=== PATIENT | male | born 1950 | race Caucasian/White ===

== ENCOUNTER 2019-04-30 11:21 | Inpatient (IN) ==
[2019-04-30] MEDS ORDERED: Famotidine 20 MG/2 ML VIAL IVP ONE (12:21)
[2019-04-30] MEDS ORDERED: Pregabalin 75 MG CAPSULE PO ONE (12:24)
[2019-04-30] MEDS ORDERED: Celecoxib 100 MG CAPSULE PO ONE (12:25)
[2019-04-30] MEDS ORDERED: *HR* Promethazine 25 MG/ML VIAL IVP PRN (12:26)
[2019-04-30] MEDS ORDERED: *HR* HYDROmorphone 2 MG TABLET PO PRN (12:26)
[2019-04-30] MEDS ORDERED: *HR* Labetalol 20 MG/4 ML SYRINGE IVP PRN (12:26)
[2019-04-30] MEDS ORDERED: *HR* OxyCODONE Immed Rel 5 MG TABLET PO PRN (12:26)
[2019-04-30] MEDS ORDERED: Vancomycin 1,000 MG, Sodium Chloride IRRigation 1,000 ML IR ONE (12:30)
[2019-04-30] MEDS ORDERED: CeFAZolin Syr 2,000MG/20 ML 2,000 MG/20 ML SYRINGE IVPB ONE (12:48)
[2019-04-30] MEDS ORDERED: Albuterol 2.5 MG/3 ML NEBULIZER IH PRN (12:48)
[2019-04-30] MEDS ORDERED: *HR* FentaNYL (PF) 100 MCG/2 ML VIAL ONE (12:50)
[2019-04-30] MEDS ORDERED: *HR* Propofol 200 MG/20 ML VIAL IVP ONE (12:50)
[2019-04-30] MEDS ORDERED: Lidocaine -MPF 2% 2 ML VIAL ONE (12:50)
[2019-04-30] MEDS ORDERED: *HR* Midazolam HCl 2 MG/2 ML VIAL ONE (12:50)
[2019-04-30] MEDS ORDERED: *HR* Succinylcholine 200 MG/10 ML VIAL IVP ONE (12:50)
[2019-04-30] MEDS ORDERED: Heparin 1,000 UNITS/500 mL 500 ML ONE (12:52)
[2019-04-30] MEDS ORDERED: *HR* Remifentanil 2 MG VIAL IVP ONE (12:52)
[2019-04-30] MEDS ORDERED: Bupivacaine-MPF 0.25% 10 ML VIAL ONE (12:52)
[2019-04-30] MEDS ORDERED: Protamine Sulfate 50 MG/5 ML VIAL IVP ONE (12:52)
[2019-04-30] MEDS ORDERED: EPHEDrine 50 MG/ML VIAL ONE (12:54)
[2019-04-30] MEDS ORDERED: *HR* PHENYLEPHRINE 1,000 MCG/10 ML SYRINGE IVP ONE (12:55)
[2019-04-30] MEDS ORDERED: NiCARdipine 2.5 MG/10 ML Syringe IVPB ONE (13:00)
[2019-04-30] MEDS ORDERED: Ringers Solution, Lactated 1,000 ML IVC SCH (13:00)
[2019-04-30] MEDS ORDERED: *HR* Phenylephrine 10 MG/ML VIAL ONE (13:04)
[2019-04-30] MEDS ORDERED: Heparin 1,000 UNITS/500 mL 0 ML ONE (13:09)
[2019-04-30] MEDS ORDERED: Lidocaine HCL 4 ML Topical Solution (Laryng-O-Jet Kit Sterile Pak) TP ONE (13:27)
[2019-04-30] MEDS ORDERED: *HR* Heparin 5,000 UNIT/ML VIAL ONE (13:47)
[2019-04-30 14:18] LABS: BUN/Creatinine Ratio 6 (6-26); Blood Urea Nitrogen 4 mg/dL (8-23); Calcium 8.6 mg/dL (8.6-10.3); Carbon Dioxide 26 mEq/L (23-29); Ethanol 85 mg/dL (Less than 10); Glucose 100 mg/dL (70-105); eGFR For African Americans > 60 (> 60); eGFR For Non-African Americans > 60 (> 60)
[2019-04-30 14:20] LABS: Chloride 107 mEq/L (98-107)
[2019-04-30 14:34] LABS: Osmolality,Calculated 287 (280-300); Potassium 3.6 mEq/L (3.5-5.1); Sodium 140 mEq/L (136-145)
[2019-04-30] MEDS ORDERED: *HR* LORazepam 2 MG/ML VIAL IVP PRN ×3 (16:29)
[2019-04-30 16:57] LABS: Basophils # 0.1 K/mcL (0.0-0.2); Basophils % 0.5 %; Eosinophils # 0.1 K/mcL (0.0-0.6); Eosinophils % 0.6 %; Hematocrit 43.6 % (37.5-50.1); Hemoglobin 14.8 g/dL (12.9-16.9); Immature Granulocytes % 0.6 % (0-4); Lymphocytes # 1.4 K/mcL (0.6-4.6); Lymphocytes % 11.5 %; Mean Corpuscular HGB Conc 33.9 g/dL (31.6-35.5); Mean Corpuscular Hemoglobin 35.3 pg (28.0-33.3); Mean Corpuscular Volume 104.1 fL (83.0-100.0); Mean Platelet Volume 8.7 fL (9.4-12.4); Monocytes # 1.1 K/mcL (0.0-1.3); Neutrophils # 9.3 K/mcL (1.6-8.9); Platelet Count 300 K/mcL (140-400); Red Blood Count 4.19 M/mcL (4.19-5.50); Red Cell Distribution Width 13.4 % (11.5-14.5); Segmented Neutrophils % 77.8 %; White Blood Count 11.9 K/mcL (4.3-11.1)
[2019-04-30 17:02] LABS: Prothrombin Time 11.5 Seconds (9.4-12.1)
[2019-04-30 17:15] LABS: Albumin 3.2 g/dL (3.5-5.7); Albumin/Globulin Ratio 0.9 (1.1-2.2); Bilirubin,Direct 0.2 mg/dL (0.0-0.2); Bilirubin,Indirect 0.3 mg/dL (0.0-1.0); Bilirubin,Total 0.5 mg/dL (0.3-1.0); Globulin 3.6 g/dL (2.4-3.5); Total Protein 6.8 g/dL (6.4-8.9)
[2019-04-30] MEDS: Ringers Solution, Lactated 1,000 ML IVC SCH (17:15)
[2019-04-30] MEDS: *HR* Heparin 5,000 UNIT/ML VIAL SQ SCH (17:15)
[2019-04-30] MEDS: Thiamine (B-1) 100 MG, Folic Acid 1 MG, MVI, adult with vitamin K 10 ML in 0.9 % Sodi... IVPB SCH (18:20)
[2019-05-01] MEDS: Ringers Solution, Lactated 1,000 ML IVC SCH ×2 (00:44→08:46)
[2019-05-01] MEDS: *HR* Heparin 5,000 UNIT/ML VIAL SQ SCH (05:06)
[2019-05-01] MEDS: Thiamine (B-1) 100 MG TABLET PO SCH (08:46)
[2019-05-01] MEDS: Aspirin 81 MG TAB.CHEW PO SCH (08:46)
[2019-05-01] MEDS: Folic Acid 1 MG TABLET PO SCH (08:46)
[2019-05-01] MEDS ORDERED: *HR* Heparin 5,000 UNIT/ML VIAL IVP PRN ×2 (11:05)
[2019-05-01] MEDS ORDERED: *HR* Heparin 5,000 UNIT/ML VIAL IVP ONE (11:05)
[2019-05-01] MEDS: Heparin 25,000 UNIT/250 ML D5W 25,000 UNIT/250 ML IV.SOLN IVC SCH (11:35)
[2019-05-01] MEDS ORDERED: *HR* Heparin 5,000 UNIT/ML VIAL SQ SCH (12:00)
[2019-05-01 12:30] LABS: Hematocrit 37.3 % (37.5-50.1); Hemoglobin 12.4 g/dL (12.9-16.9); Mean Corpuscular HGB Conc 33.2 g/dL (31.6-35.5); Mean Corpuscular Hemoglobin 35.8 pg (28.0-33.3); Mean Corpuscular Volume 107.8 fL (83.0-100.0); Mean Platelet Volume 9.2 fL (9.4-12.4); Platelet Count 237 K/mcL (140-400); Red Blood Count 3.46 M/mcL (4.19-5.50); Red Cell Distribution Width 13.6 % (11.5-14.5); White Blood Count 7.6 K/mcL (4.3-11.1)
[2019-05-01 12:32] LABS: Heparin anti-factor XA UFH < 0.04 IU/mL (0.30-0.70)
[2019-05-01 12:33] LABS: INR 1.1; Prothrombin Time 12.3 Seconds (9.4-12.1)
[2019-05-01] MEDS: Thiamine (B-1) 100 MG, Folic Acid 1 MG, MVI, adult with vitamin K 10 ML in 0.9 % Sodi... IVPB SCH (17:00)
[2019-05-02] MEDS: Aspirin 81 MG TAB.CHEW PO SCH (08:19)
[2019-05-02] MEDS: Folic Acid 1 MG TABLET PO SCH (08:19)
[2019-05-02] MEDS: Thiamine (B-1) 100 MG TABLET PO SCH (08:23)
[2019-05-02] MEDS: Heparin 25,000 UNIT/250 ML D5W 25,000 UNIT/250 ML IV.SOLN IVC SCH (13:32)
[2019-05-02] MEDS ORDERED: Lidocaine -MPF 2% 2 ML VIAL ONE (17:11)
[2019-05-02] MEDS ORDERED: *HR* Propofol 200 MG/20 ML VIAL IVP ONE (17:12)
[2019-05-02] MEDS ORDERED: *HR* Succinylcholine 200 MG/10 ML VIAL IVP ONE (17:12)
[2019-05-02] MEDS ORDERED: *HR* Midazolam HCl 2 MG/2 ML VIAL ONE (17:15)
[2019-05-02] MEDS ORDERED: *HR* FentaNYL (PF) 100 MCG/2 ML VIAL ONE (17:15)
[2019-05-02] MEDS ORDERED: *HR* Remifentanil 1 MG VIAL IVP ONE ×2 (17:15→17:16)
[2019-05-02] MEDS ORDERED: Heparin 1,000 UNITS/500 mL 500 ML ONE (17:16)
[2019-05-02] MEDS ORDERED: Bupivacaine-MPF 0.25% 10 ML VIAL ONE (17:16)
[2019-05-02] MEDS ORDERED: Vancomycin 1,000 MG, Sodium Chloride IRRigation 1,000 ML IR ONE (17:30)
[2019-05-02] MEDS ORDERED: Albuterol 2.5 MG/3 ML NEBULIZER ONE (17:37)
[2019-05-02] MEDS ORDERED: Vancomycin 1,000 MG VIAL ONE (18:33)
[2019-05-02] MEDS ORDERED: *HR* Heparin 5,000 UNIT/ML VIAL ONE ×2 (18:40→19:25)
[2019-05-02] MEDS ORDERED: EPHEDrine 50 MG/ML VIAL ONE (18:45)
[2019-05-02] MEDS ORDERED: Ondansetron 4 MG/2 ML VIAL ONE (20:14)
[2019-05-02] MEDS ORDERED: *HR* Promethazine 25 MG/ML VIAL IVP PRN (20:30)
[2019-05-02] MEDS ORDERED: *HR* Labetalol 20 MG/4 ML SYRINGE IVP PRN ×2 (20:30→21:37)
[2019-05-02] MEDS ORDERED: Ondansetron 4 MG/2 ML VIAL IVP ONE (20:30)
[2019-05-02] MEDS ORDERED: Esmolol 100 MG/10 ML VIAL IVP ONE (20:36)
[2019-05-02] MEDS: Morphine Sulfate 2 MG/ML SYRINGE IVP PRN ×2 (21:03→21:16)
[2019-05-02] MEDS ORDERED: Acetaminophen 325 MG TABLET PO PRN (21:37)
[2019-05-02] MEDS ORDERED: Naloxone 0.4 MG/ML INJ IVP PRN (21:37)
[2019-05-02] MEDS ORDERED: *HR* HYDROcodone/Acet 5/325 mg TABLET PO PRN (21:37)
[2019-05-02] MEDS ORDERED: *HR* LORazepam 2 MG/ML VIAL IVP PRN ×3 (21:37)
[2019-05-02] MEDS ORDERED: 0.9 % Sodium Chloride 1,000 ML IVC SCH (21:37)
[2019-05-02] MEDS ORDERED: *HR* OxyCODONE Immed Rel 5 MG TABLET PO PRN (21:37)
[2019-05-02] MEDS ORDERED: Ondansetron 4 MG/2 ML VIAL IVP PRN (21:37)
[2019-05-02] MEDS ORDERED: 0.9 % Sodium Chloride 500 ML ONE (22:06)
[2019-05-02] MEDS ORDERED: 0.9 % Sodium Chloride 500 ML IVC SCH (22:15)
[2019-05-03] MEDS: *HR* Metoprolol 5 MG/5 ML VIAL IVP SCH ×2 (00:22→08:20)
[2019-05-03] MEDS: ceFAZolin 2,000 MG in 0.9 % Sodium Chloride 100 ML IVPB SCH ×2 (00:22→08:19)
[2019-05-03] MEDS ORDERED: *HR* Heparin 5,000 UNIT/ML VIAL SQ SCH (06:00)
[2019-05-03] MEDS ORDERED: Folic Acid 1 MG TABLET PO SCH (09:00)
[2019-05-03] MEDS ORDERED: Thiamine (B-1) 100 MG TABLET PO SCH (09:00)
[2019-05-03] MEDS ORDERED: Aspirin 81 MG TAB.CHEW PO SCH (09:00)
[2019-05-03 15:18] VITALS: BP 105/63
== END 2019-05-03 10:45 | disposition home or self-care (01) | DRG 38 ==
LOC: SAMDAY 11:21 → 2NNU 15:39 → SUATTDRO 15:39 → INTOOBSV 15:39
PROVIDERS: ADMIT Internal Medicine; ATTEND Internal Medicine

== ENCOUNTER 2019-08-03 20:42 | Observation (INO) ==
[2019-08-03] MEDS ORDERED: Pantoprazole 80 MG in 0.9 % Sodium Chloride 50 ML IVPB ONE (20:46)
[2019-08-03] MEDS ORDERED: 0.9 % Sodium Chloride 1,000 ML ONE (20:58)
[2019-08-03] MEDS ORDERED: 0.9 % Sodium Chloride 1,000 ML IVC ONE ×2 (20:58→21:51)
[2019-08-03 21:05] LABS: Basophils % 0.3 %; Eosinophils # 0.2 K/mcL (0.0-0.6); Eosinophils % 1.3 %; Immature Granulocytes % 0.9 % (0-4); Lymphocytes # 1.6 K/mcL (0.6-4.6); Lymphocytes % 12.1 %; Mean Corpuscular HGB Conc 31.8 g/dL (31.6-35.5); Mean Corpuscular Hemoglobin 32.3 pg (28.0-33.3); Mean Corpuscular Volume 101.4 fL (83.0-100.0); Mean Platelet Volume 9.8 fL (9.4-12.4); Monocytes # 1.8 K/mcL (0.0-1.3); Monocytes % 14.3 %; Neutrophils # 9.1 K/mcL (1.6-8.9); Platelet Count 367 K/mcL (140-400); Red Blood Count 2.17 M/mcL (4.19-5.50); Red Cell Distribution Width 17.3 % (11.5-14.5); Segmented Neutrophils % 71.1 %; White Blood Count 12.8 K/mcL (4.3-11.1)
[2019-08-03 21:10] LABS: INR 1.3; Prothrombin Time 14.3 Seconds (9.4-12.1)
[2019-08-03 21:12] LABS: Activated Partial Thrombo Time 26.3 Seconds (26.0-36.0)
[2019-08-03] MEDS ORDERED: cefTRIAXone 1,000 MG in Water for inj. (sterile) 10 ML IVP ONE (21:19)
[2019-08-03 21:28] LABS: Alanine Aminotransferase 16 Units/L (7-52); Albumin 2.4 g/dL (3.5-5.7); Alkaline Phosphatase 65 Units/L (34-104); Aspartate Amino Transferase 20 Units/L (13-39); BUN/Creatinine Ratio 14 (6-26); Bilirubin,Total 0.3 mg/dL (0.3-1.0); Blood Urea Nitrogen 12 mg/dL (8-23); Calcium 7.5 mg/dL (8.6-10.3); Carbon Dioxide 21 mEq/L (23-29); Chloride 105 mEq/L (98-107); Globulin 2.4 g/dL (2.4-3.5); Glucose 147 mg/dL (70-105); Lipase 8 Units/L (11-82); Magnesium 1.8 mg/dL (1.6-2.6); Osmolality,Calculated 286 (280-300); Potassium 3.9 mEq/L (3.5-5.1); Sodium 137 mEq/L (136-145); Total Protein 4.8 g/dL (6.4-8.9); Troponin I < 0.03 ng/mL (< 0.04); eGFR For African Americans > 60 (> 60); eGFR For Non-African Americans > 60 (> 60)
[2019-08-03 22:08] LABS: Ethanol < 10 mg/dL (Less than 10)
[2019-08-03] MEDS ORDERED: *HR* Promethazine 25 MG/ML VIAL IVP PRN (22:35)
[2019-08-03] MEDS ORDERED: Naloxone 0.4 MG/ML INJ IVP PRN (22:35)
[2019-08-03] MEDS ORDERED: *HR* LORazepam 2 MG/ML VIAL IVP PRN ×3 (22:49)
[2019-08-04] MEDS ORDERED: 0.9 % Sodium Chloride 1,000 ML IVC ONE (00:21)
[2019-08-04] MEDS ORDERED: 0.9 % Sodium Chloride 1,000 ML ONE (00:23)
[2019-08-04] MEDS ORDERED: Octreotide 400 MCG in 0.9 % Sodium Chloride 100 ML IVC SCH (00:30)
[2019-08-04 03:12] LABS: Basophils % 0.3 %; Eosinophils # 0.1 K/mcL (0.0-0.6); Eosinophils % 0.4 %; Hematocrit 21.3 % (37.5-50.1); Immature Granulocytes % 0.5 % (0-4); Lymphocytes # 1.1 K/mcL (0.6-4.6); Lymphocytes % 10.1 %; Mean Corpuscular HGB Conc 32.9 g/dL (31.6-35.5); Mean Corpuscular Hemoglobin 32.4 pg (28.0-33.3); Mean Corpuscular Volume 98.6 fL (83.0-100.0); Mean Platelet Volume 9.8 fL (9.4-12.4); Monocytes # 1.4 K/mcL (0.0-1.3); Monocytes % 12.4 %; Neutrophils # 8.6 K/mcL (1.6-8.9); Platelet Count 249 K/mcL (140-400); Red Blood Count 2.16 M/mcL (4.19-5.50); Segmented Neutrophils % 76.3 %; White Blood Count 11.2 K/mcL (4.3-11.1)
[2019-08-04 03:16] LABS: INR 1.3
[2019-08-04 03:31] LABS: BUN/Creatinine Ratio 21 (6-26); Blood Urea Nitrogen 12 mg/dL (8-23); Calcium 6.6 mg/dL (8.6-10.3); Carbon Dioxide 23 mEq/L (23-29); Chloride 111 mEq/L (98-107); Glucose 138 mg/dL (70-105); Magnesium 1.7 mg/dL (1.6-2.6); Osmolality,Calculated 286 (280-300); Potassium 4.1 mEq/L (3.5-5.1); Sodium 137 mEq/L (136-145); eGFR For African Americans > 60 (> 60); eGFR For Non-African Americans > 60 (> 60)
[2019-08-04] MEDS ORDERED: 0.9 % Sodium Chloride 250 ML ONE (03:36)
[2019-08-04] MEDS: Pantoprazole 40 MG VIAL IVP SCH ×2 (05:34→17:45)
[2019-08-04 08:49] LABS: Basophils # 0.1 K/mcL (0.0-0.2); Basophils % 0.5 %; Eosinophils # 0.1 K/mcL (0.0-0.6); Eosinophils % 1.1 %; Hemoglobin 7.9 g/dL (12.9-16.9); Immature Granulocytes % 0.6 % (0-4); Lymphocytes # 1.2 K/mcL (0.6-4.6); Mean Corpuscular HGB Conc 31.6 g/dL (31.6-35.5); Mean Corpuscular Hemoglobin 30.9 pg (28.0-33.3); Mean Corpuscular Volume 97.7 fL (83.0-100.0); Mean Platelet Volume 9.8 fL (9.4-12.4); Monocytes # 1.4 K/mcL (0.0-1.3); Monocytes % 14.3 %; Neutrophils # 6.9 K/mcL (1.6-8.9); Platelet Count 239 K/mcL (140-400); Red Blood Count 2.56 M/mcL (4.19-5.50); Red Cell Distribution Width 17.1 % (11.5-14.5); Segmented Neutrophils % 71.5 %; White Blood Count 9.7 K/mcL (4.3-11.1)
[2019-08-04 09:59] LABS: Amphetamine Screen,Urine Negative ng/mL (Cutoff=1000); Barbiturate Screen,Urine Negative ng/mL (Cutoff=200); Benzodiazepines Screen,Urine Negative ng/mL (Cutoff=200); Cannabinoid Screen,Urine Negative ng/mL (Cutoff = 50); Cocaine Screen,Urine Positive ng/mL (Cutoff= 300); Opiate Screen,Urine Negative ng/mL (Cutoff=300); Phencyclidine Screen,Urine Negative ng/mL (Cutoff=25)
[2019-08-04 15:20] LABS: Hematocrit 23.7 % (37.5-50.1); Hemoglobin 7.9 g/dL (12.9-16.9)
[2019-08-04] MEDS: Thiamine (B-1) 100 MG, Folic Acid 1 MG, MVI, adult with vitamin K 10 ML in 0.9 % Sodi... IVPB SCH (17:45)
[2019-08-05 03:17] LABS: BUN/Creatinine Ratio 14 (6-26); Blood Urea Nitrogen 11 mg/dL (8-23); Carbon Dioxide 23 mEq/L (23-29); Chloride 111 mEq/L (98-107); Glucose 135 mg/dL (70-105); Osmolality,Calculated 285 (280-300); Sodium 137 mEq/L (136-145); eGFR For African Americans > 60 (> 60); eGFR For Non-African Americans > 60 (> 60)
[2019-08-05 03:37] LABS: Hematocrit 23.8 % (37.5-50.1); Hemoglobin 7.6 g/dL (12.9-16.9); Mean Corpuscular HGB Conc 31.9 g/dL (31.6-35.5); Mean Corpuscular Hemoglobin 31.1 pg (28.0-33.3); Mean Corpuscular Volume 97.5 fL (83.0-100.0); Mean Platelet Volume 10.3 fL (9.4-12.4); Platelet Count 255 K/mcL (140-400); Red Blood Count 2.44 M/mcL (4.19-5.50); Red Cell Distribution Width 17.2 % (11.5-14.5); White Blood Count 8.4 K/mcL (4.3-11.1)
[2019-08-05] MEDS: Pantoprazole 40 MG VIAL IVP SCH ×2 (06:21→18:39)
[2019-08-05 09:17] LABS: Albumin 2.1 g/dL (3.5-5.7); Albumin/Globulin Ratio 0.9 (1.1-2.2); Bilirubin,Direct 0.1 mg/dL (0.0-0.2); Bilirubin,Indirect 0.3 mg/dL (0.0-1.0); Bilirubin,Total 0.4 mg/dL (0.3-1.0); Globulin 2.3 g/dL (2.4-3.5); Total Protein 4.4 g/dL (6.4-8.9)
[2019-08-05] MEDS ORDERED: Gadolinium Contrast Agent (WT Based) IV PRN (10:32)
[2019-08-05 14:36] LABS: Hematocrit 26.3 % (37.5-50.1); Hemoglobin 8.3 g/dL (12.9-16.9)
[2019-08-05 14:52] LABS: % Iron Saturation 25 % (20-55); Iron 46 mcg/dL (65-175); Transferrin 129 mg/dL (203-362)
[2019-08-05] MEDS: Thiamine (B-1) 100 MG, Folic Acid 1 MG, MVI, adult with vitamin K 10 ML in 0.9 % Sodi... IVPB SCH (18:39)
[2019-08-06 00:56] LABS: Basophils % 0.4 %; Eosinophils # 0.1 K/mcL (0.0-0.6); Eosinophils % 1.2 %; Hematocrit 23.2 % (37.5-50.1); Hemoglobin 7.6 g/dL (12.9-16.9); Immature Granulocytes % 0.4 % (0-4); Lymphocytes # 1.3 K/mcL (0.6-4.6); Lymphocytes % 12.5 %; Mean Corpuscular HGB Conc 32.8 g/dL (31.6-35.5); Mean Corpuscular Hemoglobin 32.2 pg (28.0-33.3); Mean Corpuscular Volume 98.3 fL (83.0-100.0); Mean Platelet Volume 9.6 fL (9.4-12.4); Monocytes # 1.5 K/mcL (0.0-1.3); Monocytes % 14.6 %; Neutrophils # 7.4 K/mcL (1.6-8.9); Platelet Count 250 K/mcL (140-400); Red Blood Count 2.36 M/mcL (4.19-5.50); Red Cell Distribution Width 16.8 % (11.5-14.5); Segmented Neutrophils % 70.9 %; White Blood Count 10.4 K/mcL (4.3-11.1)
[2019-08-06 01:14] LABS: Alanine Aminotransferase 12 Units/L (7-52); Albumin 1.9 g/dL (3.5-5.7); Albumin/Globulin Ratio 0.9 (1.1-2.2); Alkaline Phosphatase 56 Units/L (34-104); Aspartate Amino Transferase 14 Units/L (13-39); BUN/Creatinine Ratio 8 (6-26); Bilirubin,Total 0.2 mg/dL (0.3-1.0); Blood Urea Nitrogen 10 mg/dL (8-23); Carbon Dioxide 23 mEq/L (23-29); Chloride 110 mEq/L (98-107); Globulin 2.1 g/dL (2.4-3.5); Glucose 154 mg/dL (70-105); Osmolality,Calculated 282 (280-300); Potassium 3.7 mEq/L (3.5-5.1); Sodium 135 mEq/L (136-145); eGFR For African Americans > 60 (> 60); eGFR For Non-African Americans 57 (> 60)
[2019-08-06] MEDS: Pantoprazole 40 MG VIAL IVP SCH (05:39)
[2019-08-06] MEDS ORDERED: *HR* FentaNYL (PF) 100 MCG/2 ML VIAL ONE (10:43)
[2019-08-06] MEDS ORDERED: Lidocaine -MPF 4% 5 ML AMPUL ONE (10:43)
[2019-08-06] MEDS ORDERED: *HR* Propofol 200 MG/20 ML VIAL IVP ONE (10:43)
[2019-08-06] MEDS: Thiamine (B-1) 100 MG, Folic Acid 1 MG, MVI, adult with vitamin K 10 ML in 0.9 % Sodi... IVPB SCH (17:12)
[2019-08-07 03:16] LABS: Hematocrit 23.8 % (37.5-50.1); Hemoglobin 7.8 g/dL (12.9-16.9)
[2019-08-07 03:34] LABS: BUN/Creatinine Ratio 10 (6-26); Blood Urea Nitrogen 9 mg/dL (8-23); Calcium 7.3 mg/dL (8.6-10.3); Carbon Dioxide 24 mEq/L (23-29); Chloride 109 mEq/L (98-107); Glucose 98 mg/dL (70-105); Osmolality,Calculated 281 (280-300); Potassium 3.7 mEq/L (3.5-5.1); Sodium 136 mEq/L (136-145); eGFR For African Americans > 60 (> 60); eGFR For Non-African Americans > 60 (> 60)
[2019-08-07] MEDS ORDERED: Folic Acid 1 MG TABLET PO SCH (09:00)
[2019-08-07] MEDS ORDERED: Multivit/Ca/Min/Fe/FA 1 TAB TABLET PO SCH (09:00)
[2019-08-07] MEDS ORDERED: Thiamine (B-1) 100 MG TABLET PO SCH (09:00)
[2019-08-07 10:52] VITALS: BP 99/59
[2019-08-07 17:52] LABS: AFP Tumor Marker Non-Pregnant 2 ng/mL (0-9)
[2019-08-08 11:08] LABS: Saccharomyces cerevisiae IgA 44.8 Units (0.0-24.9)
[2019-08-08 11:13] LABS: Immunoglobulin A (CELIAC) 181 mg/dL (68-408); Serine Protease-3 Antibody 1 AU/mL (0-19)
[2019-08-08 11:14] LABS: ANA IgG by ELISA NONE DETECTED (None Detected); F-Actin (sm muscle) Ab IgG 5 Units (0-19)
[2019-08-08 11:25] LABS: HCV Quant Interpretation DETECTED (Not Detected); HCV Quant Log 7.03 log IU/mL
[2019-08-09 08:47] LABS: Tissue Transglutaminase IgA <2 U/mL (0-3)
[2019-08-10 18:52] LABS: A1A SZ Specimen WHOLE BLOOD; Alpha-1-Antitrypsin S Allele NEGATIVE; Alpha-1-Antitrypsin Z Allele NEGATIVE
[2019-08-11 07:19] LABS: Alpha-1-Antitrypsin 130 mg/dL (90-200)
[2019-08-11 13:20] LABS: HCV Genotype by Sequencing 1A OR 1B
== END 2019-08-07 12:09 | disposition home or self-care (01) ==
LOC: EMEROOARM 20:42 → 2ANU 20:42 → SUATTDRO 22:02 → 2ANU 22:18
PROVIDERS: ADMIT Student in an Organized Health Care Education/Training Program; ATTEND Internal Medicine
PROC: ENDOEBX (2019-08-06 14:50)